=== PATIENT | male | born 1965 | race African-American/Black ===

== ENCOUNTER 2022-10-14 18:34 | Inpatient (IN) | payer OTHER ==
[2022-10-14 19:15] VITALS: BMI 27.3
[2022-10-14] MEDS ORDERED: BENZONATATE 200 MG CAPSULE PO PRN (20:03)
[2022-10-14] MEDS ORDERED: NICOTINE 10 MG CARTRIDGE (INHALER) IH PRN (20:03)
[2022-10-14] MEDS ORDERED: MAG HYDROX/AL HYDROX/SIMETH 30 ML UNIT-DOSE CUP PO PRN (20:03)
[2022-10-14] MEDS ORDERED: IBUPROFEN 400 MG TABLET (FP) PO PRN (20:03)
[2022-10-14] MEDS ORDERED: NALOXONE HCL 0.4 MG/ML VIAL IM PRN (20:03)
[2022-10-14] MEDS ORDERED: MAGNESIUM HYDROX 2400MG/30ML ORAL SUSPENSION 30 ML CUP PO PRN (20:03)
[2022-10-14] MEDS ORDERED: hydrOXYzine PAMOATE 25 MG CAPSULE (FP) PO PRN (20:03)
[2022-10-14] MEDS ORDERED: NICOTINE POLACRILEX 2 MG GUM BUC PRN (20:03)
[2022-10-14] MEDS ORDERED: guaiFENesin 600 MG TABLET.ER (FP) PO PRN (20:03)
[2022-10-14] MEDS ORDERED: AMMONIUM LACTATE 12% LOTION 225 GM BOTTLE TP PRN (20:03)
[2022-10-14] MEDS ORDERED: POLYETHYLENE GLYCOL (HEALTHYLAX) 3350 17 GM PACKET PO PRN (20:03)
[2022-10-14] MEDS ORDERED: ACETAMINOPHEN 325 MG TABLET (FP) PO PRN (20:03)
[2022-10-14] MEDS ORDERED: BENZOCAINE/MENTHOL (CHLORASEPTIC ) LOZENGE MM PRN (20:03)
[2022-10-14] MEDS ORDERED: COLLOIDAL OATMEAL 1 BAR EACH TP PRN (20:03)
[2022-10-14] MEDS ORDERED: LOPERAMIDE HCL 2 MG CAPSULE PO PRN (20:03)
[2022-10-14] MEDS ORDERED: NALOXONE HCL (KLOXXADO) 8 MG SPRAY NS PRN (20:03)
[2022-10-14] MEDS ORDERED: TUBERCULIN PPD 5 TU/0.1ML SYRINGE (IN PATIENT USE ONLY) ID ONE (23:23)
[2022-10-14] MEDS ORDERED: TUBERCULIN PPD 5 TU/0.1ML VIAL ID ONE (23:39)
[2022-10-14] MEDS: MELATONIN 5 MG TABLETS PO SCH (23:41)
[2022-10-14] MEDS: THIAMINE HCL 100 MG TABLET (FP) PO SCH (23:47)
[2022-10-15] MEDS: PRENATAL VITAMINS W/ FOLIC ACID TABLET (FP) PO SCH (09:37)
[2022-10-15 10:45] LABS: EPI CELLS 5 /uL (0-25.1); HYALINE CASTS 2 /uL (0-3.1); URINE APPEARANCE CLEAR; URINE BACTERIA 126 /uL (0-1359); URINE BILIRUBIN NEGATIVE (NEGATIVE); URINE COLOR YELLOW; URINE GLUCOSE (UA) NEGATIVE (NEGATIVE); URINE KETONE TRACE (NEGATIVE); URINE LEUK ESTERASE 1+ (NEGATIVE); URINE NITRITE NEGATIVE (NEGATIVE); URINE PROTEIN NEGATIVE (NEGATIVE); URINE RBC 9 /uL (0-23.9); URINE WBC 179 /uL (0-25.8)
[2022-10-15 10:54] LABS: HEMATOCRIT 44.9 % (35.4-49); HEMOGLOBIN 15.5 GM/dL (11.7-16.9); MCH 30.4 pg (25.7-33.7); MCHC 34.4 g/dl (32.0-35.9); MEAN CELL VOLUME 88.2 fl (80-96); PLATELET COUNT 172 10^3/uL (134-434); RBC 5.09 M/mm3 (4.00-5.60); RDW 13.4 % (11.9-15.9); WHITE BLOOD COUNT 4.7 K/mm3 (4.0-10.0)
[2022-10-15 10:56] LABS: POTASSIUM 4.5 mmol/L (3.5-5.1)
[2022-10-15 11:07] LABS: BLOOD UREA NITROGEN 16.3 mg/dL (7-18); CALCIUM 9.5 mg/dL (8.5-10.1)
[2022-10-15 11:09] LABS: ALBUMIN 3.4 g/dl (3.4-5.0)
[2022-10-15 11:11] LABS: CREATININE 1.1 mg/dL (0.55-1.3)
[2022-10-15 11:13] LABS: BILIRUBIN,TOTAL 0.6 mg/dL (0.2-1); TOT PROT 6.8 g/dl (6.4-8.2)
[2022-10-15 12:08] LABS: SYPHILIS W/ RPR CONF REACTIVE (NONREACTIVE)
[2022-10-15] MEDS: MELATONIN 5 MG TABLETS PO SCH (21:13)
[2022-10-15] MEDS: THIAMINE HCL 100 MG TABLET (FP) PO SCH (21:13)
[2022-10-16] MEDS: PRENATAL VITAMINS W/ FOLIC ACID TABLET (FP) PO SCH (09:41)
[2022-10-16] MEDS: IBUPROFEN 600 MG TABLET (FP) PO PRN (09:42)
[2022-10-16] MEDS: GABAPENTIN 400 MG CAPSULE PO SCH ×2 (13:20→21:07)
[2022-10-16] MEDS: TAMSULOSIN HCL 0.4 MG CAP PO SCH (17:42)
[2022-10-16] MEDS: MELATONIN 5 MG TABLETS PO SCH (21:08)
[2022-10-16] MEDS: THIAMINE HCL 100 MG TABLET (FP) PO SCH (21:08)
[2022-10-17] MEDS: TAMSULOSIN HCL 0.4 MG CAP PO SCH (10:06)
[2022-10-17] MEDS: PRENATAL VITAMINS W/ FOLIC ACID TABLET (FP) PO SCH (10:06)
[2022-10-17] MEDS: GABAPENTIN 400 MG CAPSULE PO SCH ×2 (11:00→21:16)
[2022-10-17] MEDS: MELATONIN 5 MG TABLETS PO SCH (21:16)
[2022-10-17] MEDS: THIAMINE HCL 100 MG TABLET (FP) PO SCH (21:20)
[2022-10-18 06:45] VITALS: RESP 18
[2022-10-18] MEDS: GABAPENTIN 400 MG CAPSULE PO SCH ×2 (10:01→21:10)
[2022-10-18] MEDS: PRENATAL VITAMINS W/ FOLIC ACID TABLET (FP) PO SCH (10:01)
[2022-10-18] MEDS: TAMSULOSIN HCL 0.4 MG CAP PO SCH (10:01)
[2022-10-18] MEDS: MELATONIN 5 MG TABLETS PO SCH (21:10)
[2022-10-18] MEDS: THIAMINE HCL 100 MG TABLET (FP) PO SCH (21:10)
[2022-10-18] MEDS ORDERED: OXYBUTYNIN CHLORIDE 5 MG TABLET PO SCH (22:00)
[2022-10-19] MEDS: PRENATAL VITAMINS W/ FOLIC ACID TABLET (FP) PO SCH (09:59)
[2022-10-19] MEDS: GABAPENTIN 400 MG CAPSULE PO SCH ×2 (09:59→21:06)
[2022-10-19] MEDS: TAMSULOSIN HCL 0.4 MG CAP PO SCH (09:59)
[2022-10-19] MEDS: CHLORHEXIDINE GLUCONATE 0.12% 15ML CUP MM SCH ×2 (16:45→21:06)
[2022-10-19] MEDS: MELATONIN 5 MG TABLETS PO SCH (21:06)
[2022-10-19] MEDS: THIAMINE HCL 100 MG TABLET (FP) PO SCH (21:06)
[2022-10-19] MEDS: BENZOCAINE 20 % GEL TUBE MM PRN (21:09)
[2022-10-20] MEDS: PRENATAL VITAMINS W/ FOLIC ACID TABLET (FP) PO SCH (09:38)
[2022-10-20] MEDS: GABAPENTIN 400 MG CAPSULE PO SCH ×2 (09:39→21:12)
[2022-10-20] MEDS: TAMSULOSIN HCL 0.4 MG CAP PO SCH (09:39)
[2022-10-20] MEDS: BENZOCAINE 20 % GEL TUBE MM PRN ×2 (09:40→21:14)
[2022-10-20] MEDS: CHLORHEXIDINE GLUCONATE 0.12% 15ML CUP MM SCH ×2 (09:41→21:12)
[2022-10-20] MEDS: THIAMINE HCL 100 MG TABLET (FP) PO SCH (21:12)
[2022-10-20] MEDS: MELATONIN 5 MG TABLETS PO SCH (21:13)
[2022-10-21] MEDS: TAMSULOSIN HCL 0.4 MG CAP PO SCH (09:45)
[2022-10-21] MEDS: GABAPENTIN 400 MG CAPSULE PO SCH ×2 (09:45→21:16)
[2022-10-21] MEDS: PRENATAL VITAMINS W/ FOLIC ACID TABLET (FP) PO SCH (09:46)
[2022-10-21] MEDS: CHLORHEXIDINE GLUCONATE 0.12% 15ML CUP MM SCH ×2 (09:47→21:16)
[2022-10-21] MEDS: BENZOCAINE 20 % GEL TUBE MM PRN ×2 (09:48→21:16)
[2022-10-21] MEDS: MELATONIN 5 MG TABLETS PO SCH (21:16)
[2022-10-21] MEDS: THIAMINE HCL 100 MG TABLET (FP) PO SCH (21:16)
[2022-10-22] MEDS: PRENATAL VITAMINS W/ FOLIC ACID TABLET (FP) PO SCH (09:50)
[2022-10-22] MEDS: GABAPENTIN 400 MG CAPSULE PO SCH ×2 (09:50→21:08)
[2022-10-22] MEDS: TAMSULOSIN HCL 0.4 MG CAP PO SCH (09:50)
[2022-10-22] MEDS: BENZOCAINE 20 % GEL TUBE MM PRN ×2 (09:51→21:08)
[2022-10-22] MEDS: CHLORHEXIDINE GLUCONATE 0.12% 15ML CUP MM SCH ×2 (10:28→21:08)
[2022-10-22] MEDS: THIAMINE HCL 100 MG TABLET (FP) PO SCH (21:08)
[2022-10-22] MEDS: MELATONIN 5 MG TABLETS PO SCH (21:08)
[2022-10-23] MEDS: GABAPENTIN 400 MG CAPSULE PO SCH ×2 (10:04→21:25)
[2022-10-23] MEDS: PRENATAL VITAMINS W/ FOLIC ACID TABLET (FP) PO SCH (10:05)
[2022-10-23] MEDS: CHLORHEXIDINE GLUCONATE 0.12% 15ML CUP MM SCH ×2 (10:05→21:26)
[2022-10-23] MEDS: TAMSULOSIN HCL 0.4 MG CAP PO SCH (10:05)
[2022-10-23] MEDS: BENZOCAINE 20 % GEL TUBE MM PRN ×2 (10:07→21:26)
[2022-10-23] MEDS: CLOTRIMAZOLE 1% CREAM TP SCH ×2 (11:09→22:23)
[2022-10-23] MEDS: THIAMINE HCL 100 MG TABLET (FP) PO SCH (21:25)
[2022-10-23] MEDS: MELATONIN 5 MG TABLETS PO SCH (21:25)
[2022-10-24] MEDS: GABAPENTIN 400 MG CAPSULE PO SCH ×2 (09:02→21:18)
[2022-10-24] MEDS: CHLORHEXIDINE GLUCONATE 0.12% 15ML CUP MM SCH ×2 (09:02→21:21)
[2022-10-24] MEDS: CLOTRIMAZOLE 1% CREAM TP SCH ×2 (09:02→21:17)
[2022-10-24] MEDS: PRENATAL VITAMINS W/ FOLIC ACID TABLET (FP) PO SCH ×2 (09:02→09:54)
[2022-10-24] MEDS: TAMSULOSIN HCL 0.4 MG CAP PO SCH (09:03)
[2022-10-24] MEDS: BENZOCAINE 20 % GEL TUBE MM PRN ×2 (09:04→21:22)
[2022-10-24] MEDS: MELATONIN 5 MG TABLETS PO SCH (21:18)
[2022-10-24] MEDS: THIAMINE HCL 100 MG TABLET (FP) PO SCH (21:18)
[2022-10-25] MEDS: PRENATAL VITAMINS W/ FOLIC ACID TABLET (FP) PO SCH (09:43)
[2022-10-25] MEDS: TAMSULOSIN HCL 0.4 MG CAP PO SCH (09:44)
[2022-10-25] MEDS: GABAPENTIN 400 MG CAPSULE PO SCH ×2 (09:44→21:15)
[2022-10-25] MEDS: CLOTRIMAZOLE 1% CREAM TP SCH ×2 (09:45→21:16)
[2022-10-25] MEDS: BENZOCAINE 20 % GEL TUBE MM PRN ×2 (09:45→21:16)
[2022-10-25] MEDS: CHLORHEXIDINE GLUCONATE 0.12% 15ML CUP MM SCH ×2 (09:46→21:15)
[2022-10-25] MEDS: IBUPROFEN 600 MG TABLET (FP) PO PRN (18:15)
[2022-10-25] MEDS: MELATONIN 5 MG TABLETS PO SCH (21:15)
[2022-10-25] MEDS: THIAMINE HCL 100 MG TABLET (FP) PO SCH (21:15)
[2022-10-26] MEDS: CLOTRIMAZOLE 1% CREAM TP SCH ×2 (09:42→21:43)
[2022-10-26] MEDS: GABAPENTIN 400 MG CAPSULE PO SCH ×2 (09:42→21:39)
[2022-10-26] MEDS: TAMSULOSIN HCL 0.4 MG CAP PO SCH (09:42)
[2022-10-26] MEDS: CHLORHEXIDINE GLUCONATE 0.12% 15ML CUP MM SCH ×2 (09:43→21:42)
[2022-10-26] MEDS: PRENATAL VITAMINS W/ FOLIC ACID TABLET (FP) PO SCH (09:44)
[2022-10-26] MEDS: THIAMINE HCL 100 MG TABLET (FP) PO SCH (21:38)
[2022-10-26] MEDS: MELATONIN 5 MG TABLETS PO SCH (21:39)
[2022-10-27] MEDS: TAMSULOSIN HCL 0.4 MG CAP PO SCH (09:49)
[2022-10-27] MEDS: GABAPENTIN 400 MG CAPSULE PO SCH ×2 (09:49→21:39)
[2022-10-27] MEDS: PRENATAL VITAMINS W/ FOLIC ACID TABLET (FP) PO SCH (09:49)
[2022-10-27] MEDS: CLOTRIMAZOLE 1% CREAM TP SCH ×2 (09:50→21:43)
[2022-10-27] MEDS: CHLORHEXIDINE GLUCONATE 0.12% 15ML CUP MM SCH ×2 (09:51→21:43)
[2022-10-27] MEDS: THIAMINE HCL 100 MG TABLET (FP) PO SCH (21:39)
[2022-10-27] MEDS: MELATONIN 5 MG TABLETS PO SCH (21:39)
[2022-10-28 06:59] VITALS: TEMP 97.7
[2022-10-28] MEDS: TAMSULOSIN HCL 0.4 MG CAP PO SCH (07:52)
[2022-10-28] MEDS: PRENATAL VITAMINS W/ FOLIC ACID TABLET (FP) PO SCH (09:03)
[2022-10-28] MEDS: CLOTRIMAZOLE 1% CREAM TP SCH (09:03)
[2022-10-28] MEDS: GABAPENTIN 400 MG CAPSULE PO SCH (09:03)
[2022-10-28] MEDS: CHLORHEXIDINE GLUCONATE 0.12% 15ML CUP MM SCH (09:04)
[2022-10-28] MEDS: BENZOCAINE 20 % GEL TUBE MM PRN (09:05)
[2022-10-28 09:30] VITALS: BP 118/76; PULSE 77
== END 2022-10-28 10:02 | disposition home or self-care (01) | DRG 772 ==
LOC: YASAS 18:34 → Y5N 22:29
PROVIDERS: ADMIT Allergy & Immunology; ATTEND Psychiatry & Neurology Pain Medicine
PROC: HZ42ZZZ Group Counseling for Substance Abuse Treatment, Cognitive-Behavioral (ICD-10-PCS; principal; 2022-10-14)
DX: F14.20 Cocaine dependence, uncomplicated (principal); F12.20 Cannabis dependence, uncomplicated; F17.210 Nicotine dependence, cigarettes, uncomplicated; G62.9 Polyneuropathy, unspecified; K12.0 Recurrent oral aphthae; M54.50 Low back pain, unspecified; L25.9 Unspecified contact dermatitis, unspecified cause; Z86.19 Personal history of other infectious and parasitic diseases
CPT/HCPCS: 36415; 80053; 81003; 85027; 86593; 86780; 86803; C9803-CS; U0003; U0005

== ENCOUNTER 2023-08-22 11:53 | Inpatient (IN) | payer OTHER ==
[2023-08-22 12:59] VITALS: BMI 25.8
[2023-08-22] MEDS ORDERED: IBUPROFEN 400 MG TABLET (FP) PO PRN (13:47)
[2023-08-22] MEDS ORDERED: LOPERAMIDE HCL 2 MG CAPSULE PO PRN (13:47)
[2023-08-22] MEDS ORDERED: NICOTINE POLACRILEX 2 MG LOZENGE BC PRN (13:47)
[2023-08-22] MEDS ORDERED: MAGNESIUM HYDROX 2400MG/30ML ORAL SUSPENSION 30 ML CUP PO PRN (13:47)
[2023-08-22] MEDS ORDERED: POLYETHYLENE GLYCOL (HEALTHYLAX) 3350 17 GM PACKET PO PRN (13:47)
[2023-08-22] MEDS ORDERED: guaiFENesin 600 MG TABLET.ER (FP) PO PRN (13:47)
[2023-08-22] MEDS ORDERED: P-EPHED 60MG/TRIPROLIDI 2.5MG TABLET PO PRN (13:47)
[2023-08-22] MEDS ORDERED: ACETAMINOPHEN 325 MG TABLET (FP) PO PRN (13:47)
[2023-08-22] MEDS ORDERED: BENZOCAINE/MENTHOL (CHLORASEPTIC ) LOZENGE MM PRN (13:47)
[2023-08-22] MEDS ORDERED: NICOTINE POLACRILEX 2 MG GUM BUC PRN (13:47)
[2023-08-22] MEDS ORDERED: BENZONATATE 200 MG CAPSULE PO PRN (13:47)
[2023-08-22] MEDS: MELATONIN 5 MG TABLETS PO SCH (21:26)
[2023-08-22] MEDS: THIAMINE 100 MG TABLET PO SCH (21:26)
[2023-08-23] MEDS: ASPIRIN COATED 81 MG TABLET.EC PO SCH (09:49)
[2023-08-23] MEDS: PRENATAL VITAMINS W/ FOLIC ACID TABLET (FP) PO SCH (09:49)
[2023-08-23] MEDS: FLU VACCINE (FLULAVAL) PF 60 MCG/0.5 ML SYRINGE 2023-2024 IM ONE (11:43)
[2023-08-23 13:12] LABS: HEMATOCRIT 44.6 % (35.4-49); HEMOGLOBIN 14.6 GM/dL (11.7-16.9); MCH 29.5 pg (25.7-33.7); MCHC 32.8 g/dl (32.0-35.9); MEAN CELL VOLUME 90.2 fl (80-96); MEAN PLT VOLUME 8.9 fl (7.5-11.1); PLATELET COUNT 173 10^3/uL (134-434); RBC 4.94 M/mm3 (4.00-5.60); RDW 13.5 % (11.9-15.9); WHITE BLOOD COUNT 6.2 K/mm3 (4.0-10.0)
[2023-08-23 13:26] LABS: POTASSIUM 3.9 mmol/L (3.5-5.1)
[2023-08-23 13:29] LABS: CALCIUM 8.7 mg/dL (8.5-10.1)
[2023-08-23 13:30] LABS: ALBUMIN 2.6 g/dl (3.4-5.0)
[2023-08-23 13:35] LABS: BILIRUBIN,TOTAL 0.2 mg/dL (0.2-1)
[2023-08-23 13:37] LABS: BLOOD UREA NITROGEN 16.9 mg/dL (7-18); CREATININE 1.1 mg/dL (0.55-1.3)
[2023-08-24] MEDS: MAG HYDROX/AL HYDROX/SIMETH 30 ML UNIT-DOSE CUP PO PRN (06:22)
[2023-08-24 09:45] LABS: PH,URINE 6.5 (5.0-8.0); URINE APPEARANCE CLEAR; URINE BILIRUBIN NEGATIVE (NEGATIVE); URINE COLOR YELLOW; URINE GLUCOSE (UA) NEGATIVE (NEGATIVE); URINE KETONE NEGATIVE (NEGATIVE); URINE LEUK ESTERASE NEGATIVE (NEGATIVE); URINE NITRITE NEGATIVE (NEGATIVE); URINE PROTEIN NEGATIVE (NEGATIVE); URINE UROBILINOGEN 0.2 mg/dL (0.2-1.0)
[2023-08-24] MEDS: IBUPROFEN 600 MG TABLET (FP) PO PRN (09:46)
[2023-08-24] MEDS: hydrOXYzine PAMOATE 25 MG CAPSULE (FP) PO PRN (21:13)
[2023-08-25] MEDS ORDERED: AMMONIUM LACTATE 12% LOTION 225 GM BOTTLE TP PRN (11:52)
[2023-08-25] MEDS ORDERED: BENZOCAINE 20 % GEL TUBE MM PRN (11:53)
[2023-08-25] MEDS: CLINDAMYCIN PHOSPHATE 1% TOPICAL GEL 30 GM TUBE TP SCH (12:48)
[2023-08-25] MEDS: AMOX TR/POT CLAV 500MG/125MG TABLETS (FP) PO SCH (17:36)
[2023-08-30 06:34] VITALS: BP 110/73; PULSE 80; RESP 17; TEMP 97.8
== END 2023-08-30 18:47 | disposition home or self-care (01) | DRG 772 ==
LOC: YASAS 11:53 → Y3NR 16:42 → Y3W 08-23 12:01
PROVIDERS: ADMIT Allergy & Immunology; ATTEND Psychiatry & Neurology Pain Medicine
PROC: HZ42ZZZ Group Counseling for Substance Abuse Treatment, Cognitive-Behavioral (ICD-10-PCS; principal; 2023-08-22)
PROC: HZ42ZZZ Group Counseling for Substance Abuse Treatment, Cognitive-Behavioral (ICD-10-PCS; 2023-08-22)
DX: F14.20 Cocaine dependence, uncomplicated (principal); F12.20 Cannabis dependence, uncomplicated; F17.210 Nicotine dependence, cigarettes, uncomplicated; L98.419 Non-pressure chronic ulcer of buttock with unspecified severity; K08.89 Other specified disorders of teeth and supporting structures; R76.8 Other specified abnormal immunological findings in serum
CPT/HCPCS: 0241U-QW; 36415; 80053; 80305; 81003; 83036; 85027; 86593; 86780; 87635; 90686; 93005; 93010; G0008

== ENCOUNTER 2024-02-14 14:53 | Inpatient (IN) | payer OTHER ==
[2024-02-14 17:09] VITALS: BMI 24.3
[2024-02-14] MEDS ORDERED: POLYETHYLENE GLYCOL (HEALTHYLAX) 3350 17 GM PACKET PO PRN (17:34)
[2024-02-14] MEDS ORDERED: MAGNESIUM HYDROX 2400MG/30ML ORAL SUSPENSION 30 ML CUP PO PRN (17:34)
[2024-02-14] MEDS ORDERED: NALOXONE (NARCAN) HCL 4 MG/0.1 ML SPRAY NS PRN (17:34)
[2024-02-14] MEDS ORDERED: BENZOCAINE/MENTHOL (CHLORASEPTIC ) LOZENGE MM PRN (17:34)
[2024-02-14] MEDS ORDERED: NICOTINE POLACRILEX 2 MG LOZENGE BC PRN (17:34)
[2024-02-14] MEDS ORDERED: NICOTINE POLACRILEX 2 MG GUM BUC PRN (17:34)
[2024-02-14] MEDS ORDERED: NALOXONE HCL 0.4 MG/ML VIAL IM PRN (17:34)
[2024-02-14] MEDS ORDERED: BENZONATATE 200 MG CAPSULE PO PRN (17:34)
[2024-02-14] MEDS ORDERED: hydrOXYzine PAMOATE 25 MG CAPSULE (FP) PO PRN (17:34)
[2024-02-14] MEDS ORDERED: IBUPROFEN 400 MG TABLET (FP) PO PRN (17:34)
[2024-02-14] MEDS: ASPIRIN COATED 81 MG TABLET.EC PO SCH (18:40)
[2024-02-14] MEDS: MELATONIN 5 MG TABLETS PO SCH (21:07)
[2024-02-14] MEDS: THIAMINE 100 MG TABLET PO SCH (21:07)
[2024-02-14] MEDS: IBUPROFEN 600 MG TABLET (FP) PO PRN (21:08)
[2024-02-15] MEDS: TAMSULOSIN HCL 0.4 MG CAP PO SCH (07:39)
[2024-02-15 09:20] LABS: CHLORIDE 112 mmol/L (98-107); POTASSIUM 4.1 mmol/L (3.5-5.1); SODIUM 143 mmol/L (136-145)
[2024-02-15 09:26] LABS: CALCIUM 8.5 mg/dL (8.5-10.1)
[2024-02-15 09:28] LABS: HEMOGLOBIN 13.9 GM/dL (11.7-16.9); MCH 30.5 pg (25.7-33.7); MCHC 33.9 g/dl (32.0-35.9); MEAN CELL VOLUME 89.8 fl (80-96); MEAN PLT VOLUME 8.9 fl (7.5-11.1); PLATELET COUNT 143 10^3/uL (134-434); RBC 4.57 M/mm3 (4.00-5.60); RDW 13.7 % (11.9-15.9); WHITE BLOOD COUNT 6.2 K/mm3 (4.0-10.0)
[2024-02-15 09:29] LABS: ALBUMIN 2.6 g/dl (3.4-5.0); ANION GAP 4 mmol/L (4-13); BLOOD UREA NITROGEN 17.3 mg/dL (7-18); CO2 28 mmol/L (21-32); GLUCOSE,RANDOM 86 mg/dL (74-106)
[2024-02-15 09:31] LABS: SGOT/AST 17 U/L (15-37); SGPT/ALT 22 U/L (13-61)
[2024-02-15 09:33] LABS: ALK PHOS 75 U/L (45-117); BILIRUBIN,TOTAL 0.2 mg/dL (0.2-1)
[2024-02-15] MEDS: PRENATAL VITAMINS W/ FOLIC ACID TABLET (FP) PO SCH (10:29)
[2024-02-15 10:38] LABS: SYPHILIS W/ RPR CONF REACTIVE (NONREACTIVE)
[2024-02-15 12:04] LABS: EPI CELLS 9 /uL (0-25.1); HYALINE CASTS 1 /uL (0-3.1); PH,URINE 6.5 (5.0-8.0); URINE APPEARANCE CLEAR; URINE BACTERIA 54 /uL (0-1359); URINE BILIRUBIN NEGATIVE (NEGATIVE); URINE COLOR YELLOW; URINE GLUCOSE (UA) NEGATIVE (NEGATIVE); URINE KETONE TRACE (NEGATIVE); URINE LEUK ESTERASE 1+ (NEGATIVE); URINE NITRITE NEGATIVE (NEGATIVE); URINE PROTEIN NEGATIVE (NEGATIVE); URINE RBC 3 /uL (0-23.9); URINE WBC 64 /uL (0-25.8)
[2024-02-16] MEDS: ACETAMINOPHEN 325 MG TABLET (FP) PO PRN (03:24)
[2024-02-16] MEDS: guaiFENesin 600 MG TABLET.ER (FP) PO PRN (21:55)
[2024-02-17] MEDS: LOPERAMIDE HCL 2 MG CAPSULE PO PRN (04:57)
[2024-02-17] MEDS: MAG HYDROX/AL HYDROX/SIMETH 30 ML UNIT-DOSE CUP PO PRN (12:20)
[2024-02-17] MEDS: HYDROCORTISONE 1% TOPICAL CREAM 30 GM TUBE TP PRN (13:56)
[2024-02-17] MEDS: VITAMINS A AND D TOPICAL OINTMENT TP SCH (14:46)
[2024-02-17] MEDS: RIFAXIMIN 550 MG TABLET PO SCH (14:46)
[2024-02-17] MEDS: BANATROL PLUS POWDER PACKET PO SCH (14:56)
[2024-02-19] MEDS: PRENATAL VITAMINS W/ FOLIC ACID TABLET (FP) PO PRN (10:41)
[2024-02-19] MEDS: VITAMINS A AND D TOPICAL OINTMENT TP PRN (10:42)
[2024-02-19] MEDS: P-EPHED 60MG/TRIPROLIDI 2.5MG TABLET PO PRN (10:47)
[2024-02-20] MEDS: BENZONATATE 200 MG CAPSULE PO PRN (10:53)
[2024-02-20] MEDS: AZITHROMYCIN 250 MG TABLET PO ONE (10:53)
[2024-02-20] MEDS: guaiFENesin 600 MG TABLET.ER (FP) PO PRN (22:06)
[2024-02-21] MEDS: AZITHROMYCIN 250 MG TABLET PO SCH (10:47)
[2024-02-21] MEDS ORDERED: GABAPENTIN 300 MG CAPSULE PO PRN (14:52)
[2024-02-24 06:18] VITALS: BP 121/76; PULSE 87; RESP 18; TEMP 97.5
== END 2024-02-17 16:40 | disposition home or self-care (01) | DRG 772 ==
LOC: YASAS 14:53 → Y3W 18:18
PROVIDERS: ADMIT Neuromusculoskeletal Medicine & OMM; ATTEND Psychiatry & Neurology Pain Medicine
PROC: HZ42ZZZ Group Counseling for Substance Abuse Treatment, Cognitive-Behavioral (ICD-10-PCS; principal; 2024-02-14)
DX: F14.20 Cocaine dependence, uncomplicated (principal); F10.20 Alcohol dependence, uncomplicated; F17.210 Nicotine dependence, cigarettes, uncomplicated; M54.50 Low back pain, unspecified; G89.29 Other chronic pain; R19.7 Diarrhea, unspecified; R05.9 Cough, unspecified; R50.9 Fever, unspecified; Z18.89 Other specified retained foreign body fragments
CPT/HCPCS: 0241U-QW; 36415; 80053; 80305; 80307; 81003; 85027; 86593; 86780; 86803; 87811; 93005; 93010